=== PATIENT | male | born 1960 | race Caucasian/White ===

== ENCOUNTER 2018-10-02 16:20 | Inpatient (IN) | payer OTHER ==
[2018-10-02 18:10] VITALS: BMI 19.9
--- NOTE | 2018-10-02 20:41 | HP ---
"CIWA Score Nausea/Vomitin-Mild Nausea/No Vomiting Muscle Tremors: 4-Moderate,w/Arms Extend Anxiety: 4-Mod. Anxious/Guarded Agitation: 4-Moderately Restless Paroxysmal Sweats: 3 (Increased facial moisture) Orientation: 0-Oriented Tacttile Disturbances: 0-None Auditory Disturbances: 0-None Visual Disturbances: 0-None Headache: 0-None Present CIWA-Ar Total Score: 16 - Admission Criteria OASAS Guidelines: Admission for Medically Managed Detox: Requires at least one of the followin. CIWA greater than 12 2. Seizures within the past 24 hours 3. Delirium tremens within the past 24 hours 4. Hallucinations within the past 24 hours 5. Acute intervention needed for co occurring medical disorder 6. Acute intervention needed for co occurring psychiatric disorder 7. Severe withdrawal that cannot be handled at a lower level of care (continued vomiting, continued diarrhea, abnormal vital signs) requiring intravenous medication and/or fluids 8. Patient presents the following: CIWA greater than 12 Admission Criteria Met: Admission criteria met Admission ROS [facility] Chief Complaint: Here with alcohol withdrawal. Allergies/Adverse Reactions: Allergies Allergy/AdvReac Type Severity Reaction Status Date / Time No Known Allergies Allergy Verified 10/02/18 19:45 History of Present Illness: States here fro alcohol detox. Alcohol use began at age 12. Marijuana use began at age 10. Crack/cocaine use began at age 28. Nicotine use began at age 38. States SOB when smokes. Declines nicotine patch. Hx blackouts and overdoses r/t alcohol and crack/cocaine. Denies seizures. Longest length of sobriety is 1 week. Sprain in (L) foot after fall down stairs 2 days ago. Seen in [facility]. Denies pain in foot. Prescribed a prosthetic support boot and using a walker since Hx: DM - states controlled by diet Hx: Asthma. Denies recent exacerbation. Mental Health: States hx paranoid -schizophrenia and depression. Being f/u at [place]. States last seen 4 days ago and given Haldol IM. Denies A/V hallucinations. Denies thoughts of harming self or others. States on medications. Search Terms: Jese Enriquez, 1960 Search Date: 10/02/2018 08:31:59 PM The Drug Utilization Report below displays all of the controlled substance prescriptions, if any, that your patient has filled in the last twelve months. The information displayed on this report is compiled from pharmacy submissions to the Department, and accurately reflects the information as submitted by the pharmacies. This report was requested by: Nichelle Jaffe | Reference #: [id number] There are no results for the search terms that you entered. Exam Limitations: No Limitations - Ebola screening Have you traveled outside of the country in the last 21 days: No (N) Have you had contact with anyone from an Ebola affected area: No Have you been sick,other than usual withdrawal symptoms: No Do you have a fever: No - Review of Systems Constitutional: Chills, Diaphoresis, Changes in sleep (Difficulty staying asleep.) EENT: reports: Cataracts, Blurred Vision, Dental Problems (Missing teeth. Chews and swallows okay.) Respiratory: reports: Shortness of Breath (when smokes.), SOB with Exertion Cardiac: reports: Irregular Heart Rate (In past. Not recently.) GI: reports: Blood Streaked Bowels (Occ r/t hemorrhoids. Not recently.), Indigestion, Abdominal cramping, Other : reports: No Symptoms Reported Musculoskeletal: reports: No Symptoms Reported Integumentary: reports: Other (Dry blisters from crack-cocaine pipe) Neuro: reports: Tremors Endocrine: reports: Increased Thirst Hematology: reports: No Symptoms Reported Psychiatric: reports: Judgement Intact, Orientated x3, Agitated, Anxious, Depressed (Denies thoughts of harming self or others.) Patient History - Patient Medical History Hx Asthma: Yes Hx Chronic Obstructive Pulmonary Disease (COPD): No Hx Cardiac Disorders: No Hx Hypertension: No Hx Seizures: No Hx Diabetes: No Hx Gastrointestinal Disorders: No Hx Genitourinary Disorders: No Hx Sexually Transmitted Disorders: No Hx Renal Disease (ESRD): No Hx Human Immunodeficiency Virus (HIV): No Hx Depression: Yes Hx Suicide Attempt: No Hx Schizophrenia: Yes - Patient Surgical History Past Surgical History: No Hx Neurologic Surgery: No Hx Cataract Extraction: No Hx Cardiac Surgery: No Hx Lung Surgery: No Hx Breast Surgery: No Hx Breast Biopsy: No Hx Abdominal Surgery: No Hx Appendectomy: No Hx Cholecystectomy: No Hx Genitourinary Surgery: No Hx Section: No Hx Orthopedic Surgery: No Anesthesia Reaction: No - PPD History Previous Implant?: Yes Documented Results: Negative w/o proof Implanted On Prior R Admission?: No PPD to be Administered?: Yes - Smoking Cessation Smoking history: Current every day smoker Have you smoked in the past 12 months: Yes Aproximately how many cigarettes per day: 40 Hx Chewing Tobacco Use: No Initiated information on smoking cessation: Yes 'Breaking Loose' booklet given: 10/02/18 - Substance & Tx. History Hx Alcohol Use: Yes Hx Substance Use: Yes Substance Use Type: Alcohol, Cocaine, Marijuana Hx Substance Use Treatment: Yes (detox, rehab) - Substances Abused Alcohol Route: Oral Frequency: Daily Amount used: LIQUOR- 1 PINT, BEER- 1 SIX PACK, Age of first use: 12 Date of Last Use: 10/02/18 Cocaine Route: Smoking Frequency: Daily Amount used: 3gm Age of first use: 28 Date of Last Use: 09/30/18 Marijuana/Hashish Route: Smoking Frequency: Daily Amount used: 1 bag Age of first use: 10 Date of Last Use: 10/02/18 Admission Physical Exam S - Vital Signs Vital Signs: Vital Signs - 24 hr 10/02/18 18:08 Temperature 98 F Pulse Rate 75 Respiratory 18 Rate Blood Pressure 146/94 - Physical General Appearance: Yes: Mild Distress, Tremorous, Sweating (Increased facial moisture w/o beads.), Anxious HEENTM: Yes: Hearing grossly Normal, Normocephalic, Normal Voice, PERLA, Pharynx Normal Respiratory: Yes: Lungs Clear, Normal Breath Sounds, No Respiratory Distress Neck: Yes: No masses,lesions,Nodules, Supple Breast: Yes: Breast Exam Deferred Cardiology: Yes: Regular Rhythm, Regular Rate, S1, S2, Murmur (Murmur noted. No edema. No SOB.) Abdominal: Yes: Non Tender, Flat, Soft, Increased Bowel Sounds Genitourinary: Yes: Within Normal Limits Back: Yes: Normal Inspection Musculoskeletal: Yes: full range of Motion, Gait Steady (w/ walker use), Joint swelling (Swelling (L) outer malleolus. Non-tender. FWB. Pedal pulses (+) Toes warm, w/o edema, with cap refill < 3 sec.) Extremities: Yes: Other (Swelling (L) outer malleolus w/o trenderness.) Neurological: Yes: inspector raw quartz II-XII NML intact, Fully Oriented, Motor Strength 5/5, Normal Mood/Affect Integumentary: Yes: Normal Color, Dry, Warm, Other (Dried pickens on fingers w/ dark brown/black hyperkeratotic skin lesions w/o drainage) Lymphatic: Yes: Within Normal Limits - Diagnostic (1) Alcohol dependence with uncomplicated withdrawal Current Visit: Yes Status: Acute (2) Cocaine dependence, uncomplicated Current Visit: Yes Status: Chronic (3) Nicotine dependence, uncomplicated Current Visit: Yes Status: Chronic Qualifiers: Nicotine product type: cigarettes Qualified Code(s): F17.210 - Nicotine dependence, cigarettes, uncomplicated (4) History of borderline diabetes mellitus Current Visit: Yes Status: Chronic (5) Cannabis dependence, uncomplicated Current Visit: Yes Status: Chronic (6) Cardiac murmur, unspecified Current Visit: Yes Status: Acute (7) Sprain of unspecified ligament of left ankle, subsequent encounter Current Visit: Yes Status: Acute Comment: Seen in [facility] ER 09/30/18 and dx w/ ankle sprain. Swelling (L) outer malleolus. No tenderness. FWB. (8) Skin lesion of hand Current Visit: Yes Status: Chronic Comment: r/t crack/cocaine use Cleared for Admission [facility] - Detox or Rehab [facility] Level of Care: Medically Managed Detox Regimen/Protocol: Librium [facility] Breath Alcohol Content Breath Alcohol Content: 0 Urine Drug Screen - Results Drug Screen Negative: No Urine Drug Screen Results: THC-Marijuana, MIKE-Cocaine, BZO-Benzodiazepines"
[2018-10-02] MEDS ORDERED: MENTHOL/PHENOL 1 EACH UD MM PRN (21:15)
[2018-10-02] MEDS ORDERED: MAGNESIUM CITRATE 300 ML BOTTLE PO PRN (21:15)
[2018-10-02] MEDS ORDERED: MAG HYDROX/AL HYDROX/SIMETH 30 ML UNIT-DOSE CUP PO PRN (21:15)
[2018-10-02] MEDS ORDERED: chlordiazePOXIDE HCL 25 MG CAPSULE PO PRN (21:15)
[2018-10-02] MEDS ORDERED: MAGNESIUM HYDROX 2400MG/30ML ORAL SUSPENSION 30 ML CUP PO PRN (21:15)
[2018-10-02] MEDS ORDERED: LOPERAMIDE HCL 2 MG CAPSULE PO PRN (21:15)
[2018-10-02] MEDS ORDERED: P-EPHED 60MG/TRIPROLIDI 2.5MG TABLET PO PRN (21:15)
[2018-10-02] MEDS ORDERED: IBUPROFEN 400 MG TABLET (FP) PO PRN (21:15)
[2018-10-02] MEDS ORDERED: NICOTINE POLACRILEX 4 MG GUM BC PRN (21:15)
[2018-10-02] MEDS ORDERED: guaiFENesin 200 MG/10 ML 10 ML UNIT-DOSE CUPS PO PRN (21:19)
[2018-10-02] MEDS ORDERED: chlordiazePOXIDE HCL 25 MG CAPSULE PO ONE (21:45)
[2018-10-02] MEDS ORDERED: MELATONIN 5 MG TABLETS PO PRN (22:00)
[2018-10-02] MEDS: THIAMINE HCL 100 MG TABLET (FP) PO SCH (22:04)
[2018-10-02] MEDS: chlordiazePOXIDE HCL 25 MG CAPSULE PO SCH (22:05)
[2018-10-03 01:52] LABS: URINE APPEARANCE CLEAR; URINE BILIRUBIN NEGATIVE (<2.0 mg/dL); URINE COLOR YELLOW; URINE GLUCOSE (UA) NEGATIVE (NEGATIVE); URINE KETONE NEGATIVE (NEGATIVE); URINE LEUK ESTERASE NEGATIVE (NEGATIVE); URINE NITRITE NEGATIVE (NEGATIVE); URINE PROTEIN NEGATIVE (NEGATIVE)
[2018-10-03] MEDS: chlordiazePOXIDE HCL 25 MG CAPSULE PO SCH ×4 (05:51→23:10)
[2018-10-03] MEDS: ACETAMINOPHEN 325 MG TABLET (FP) PO PRN ×2 (05:52→23:08)
[2018-10-03 10:08] LABS: HEMATOCRIT 34.2 % (35.4-49); MCH 32.8 pg (25.7-33.7); MCHC 35.1 g/dl (32.0-35.9); MEAN CELL VOLUME 93.3 fl (80-96); MEAN PLT VOLUME 7.7 fl (7.5-11.1); PLATELET COUNT 332 K/MM3 (134-434); RBC 3.66 M/mm3 (4.00-5.60); RDW 13.9 % (11.9-15.9); WHITE BLOOD COUNT 3.2 K/mm3 (4.0-10.0)
[2018-10-03] MEDS: PRENATAL VITAMINS W/ FOLIC ACID TABLET (FP) PO SCH (10:13)
[2018-10-03 10:56] LABS: ALBUMIN 2.8 g/dl (3.4-5.0); ALK PHOS 65 U/L (45-117); ANION GAP 5 MMOL/L (8-16); BILIRUBIN,TOTAL 0.4 mg/dL (0.2-1); BLOOD UREA NITROGEN 15 mg/dL (7-18); CALCIUM 8.5 mg/dL (8.5-10.1); CHLORIDE 109 mmol/L (98-107); CO2 27 mmol/L (21-32); CREATININE 0.7 mg/dL (0.55-1.3); GLUCOSE,RANDOM 90 mg/dL (74-106); POTASSIUM 4.1 mmol/L (3.5-5.1); SGOT/AST 24 U/L (15-37); SGPT/ALT 24 U/L (13-61); SODIUM 141 mmol/L (136-145); TOT PROT 5.8 g/dl (6.4-8.2)
--- NOTE | 2018-10-03 11:59 | EKG ---
Test Reason : Blood Pressure : / mmHG Vent. Rate : 070 BPM Atrial Rate : 070 BPM P-R Int : 128 ms QRS Dur : 096 ms QT Int : 384 ms P-R-T Axes : 071 063 069 degrees QTc Int : 414 ms NORMAL SINUS RHYTHM NORMAL ECG NO PREVIOUS ECGS AVAILABLE Confirmed by BRIDGETT TALAVERA, LEE ([id number]) on 10/03/2018 11:58:55 AM Referred By: Confirmed By:LEE URIAS MD
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
--- NOTE | 2018-10-03 13:45 | CONSULT ---
[facility] Psychiatric Consult - Data Date of interview: 10/03/18 Admission source: [facility] Identifying data: Patient is a 58 year old male, without children, unemployed, homeless, and is supported by [facility]. This is patient's first admission to detox at [facility]. Patient admitted to for alcohol and cocaine dependence. Substance Abuse History: - Smoking Cessation. Smoking history: Current every day smoker. Have you smoked in the past 12 months: Yes. Aproximately how many cigarettes per day: 40. Hx Chewing Tobacco Use: No. Initiated information on smoking cessation: Yes. 'Breaking Loose' booklet given: 10/02/18. - Substance & Tx. History. Hx Alcohol Use: Yes. Hx Substance Use: Yes. Substance Use Type : Alcohol, Cocaine, Marijuana. Hx Substance Use Treatment: Yes (detox, rehab). - Substances Abused. Alcohol. Route: Oral. Frequency: Daily. Amount used: LIQUOR- 1 PINT, BEER- 1 SIX PACK,. Age of first use: 12. Date of Last Use: 10/02/18. Cocaine. Route: Smoking. Frequency: Daily. Amount used: 3gm. Age of first use: 28. Date of Last Use: 09/30/18. Marijuana/Hashish. Route: Smoking. Frequency: Daily. Amount used: 1 bag. Age of first use: 10. Date of Last Use: 10/02/18 Medical History: Asthma, Broken left foot and is ambulating with a walker. Psychiatric History: Patient reports h/o multiple psychiatric hospitalizations all of which occured at [facility]. He was most recently hospitalized at [facility] 2 months ago after experiencing thoughts to hurt himself and paranoid ideations. Self diagnosis of schizophrenia. Mr. Enriquez reports non adherence to his medication regiman. States he has accepted zyprexa, haldol, depakote, and cogentin in the past. As per pharmacy claims he was recently given a prescription of risperdal 2mg BID on 10/02/17 (from [facility]) although stated he has not taken any medications in over 3-4 weeks. Mr. Enriquez reports history of seven suicide attempt by overdose, hanging self[place] Patient currently denies thoughts or urges to hurt himself or others. Mr. Enriquez denies psychotic symptoms. Physical/Sexual Abuse/Trauma History: denies Mental Status Exam - Mental Status Exam Alert and Oriented to: Time, Place, Person Cognitive Function: Good Patient Appearance: Disheveled Mood: Euthymic Affect: Mood Congruent Patient Behavior: Cooperative Speech Pattern: Delayed Voice Loudness: Moderately Soft/Quiet Thought Process: Intact, Goal Oriented Thought Disorder: Not Present Hallucinations: Denies Suicidal Ideation: Denies Homicidal Ideation: Denies Insight/Judgement: Poor Sleep: Fair Appetite: Fair Muscle strength/Tone: Normal Gait/Station: Other (Patient has a broken left foot and is ambulating with a walker.) Psychiatric Findings - Problem List ([place] 1, 2,3) (1) Schizophrenia Current Visit: Yes Status: Suspected Qualifiers: Schizophrenia type: paranoid schizophrenia Qualified Code(s): F20.0 - Paranoid schizophrenia (2) Alcohol dependence with uncomplicated withdrawal Current Visit: Yes Status: Acute (3) Cannabis dependence, uncomplicated Current Visit: Yes Status: Chronic (4) Cocaine dependence, uncomplicated Current Visit: Yes Status: Chronic (5) Nicotine dependence, uncomplicated Current Visit: Yes Status: Chronic Qualifiers: Nicotine product type: cigarettes Qualified Code(s): F17.210 - Nicotine dependence, cigarettes, uncomplicated - Initial Treatment Plan Initial Treatment Plan: Psychoeducation provided. Detoxification in progress. Will order risperdal 1mg BID. Benefits and side effects discussed. Patient reports favorable effects when accepting risperdal. Verbal consent given.
[2018-10-03] MEDS: THIAMINE HCL 100 MG TABLET (FP) PO SCH (22:51)
[2018-10-03] MEDS: risperiDONE 1 MG TABLET (FP) PO SCH (22:51)
[2018-10-04] MEDS: chlordiazePOXIDE HCL 25 MG CAPSULE PO SCH ×3 (05:30→17:17)
[2018-10-04] MEDS: ACETAMINOPHEN 325 MG TABLET (FP) PO PRN ×2 (05:45→17:17)
[2018-10-04] MEDS: risperiDONE 1 MG TABLET (FP) PO SCH ×2 (11:28→22:24)
[2018-10-04] MEDS: PRENATAL VITAMINS W/ FOLIC ACID TABLET (FP) PO SCH (11:28)
--- NOTE | 2018-10-04 14:52 | PN ---
[facility] CIWA - CIWA Score Nausea/Vomitin Muscle Tremors: 3 Anxiety: 0-No Anxiety, at Ease Agitation: 0-Normal Activity Paroxysmal Sweats: 3 Orientation: 2-Disoriented Date<2 days Tacttile Disturbances: 3-Moderate Itch/Numb/Burn Auditory Disturbances: 0-None Visual Disturbances: 0-None Headache: 0-None Present CIWA-Ar Total Score: 14 S Progress Note (SOAP) Subjective: Tremors, Sweating, Stomach Cramping, Nausea. Objective: PATIENT A & O X 2 (UNCERTAIN ABOUT CURRENT DAY / DATE). PATIENT OBSERVED AMBULATING ON UNIT. IN NO ACUTE DISTRESS. 10/04/18 14:49 Vital Signs Temperature 96.3 F L 10/04/18 13:26 Pulse Rate 69 10/04/18 13:26 Respiratory Rate 16 10/04/18 13:26 Blood Pressure 115/74 10/04/18 13:26 O2 Sat by Pulse Oximetry (%) Laboratory Tests 10/02/18 10/03/18 10/03/18 22:26 07:00 07:00 WBC 3.2 L RBC 3.66 L Hgb 12.0 Hct 34.2 L MCV 93.3 MCH 32.8 MCHC 35.1 RDW 13.9 Plt Count 332 MPV 7.7 Sodium 141 Potassium 4.1 Chloride 109 H Carbon Dioxide 27 Anion Gap 5 L BUN 15 Creatinine 0.7 Creat Clearance w eGFR > 60 Random Glucose 90 Calcium 8.5 Total Bilirubin 0.4 AST 24 ALT 24 Alkaline Phosphatase 65 Total Protein 5.8 L Albumin 2.8 L Urine Color Yellow Urine Appearance Clear Urine pH 6.0 Ur Specific [place] 1.019 Urine Protein Negative Urine Glucose (UA) Negative Urine Ketones Negative Urine Blood Negative Urine Nitrite Negative Urine Bilirubin Negative Urine Urobilinogen 2.0 Ur Leukocyte Esterase Negative RPR Titer 10/03/18 07:00 WBC RBC Hgb Hct MCV MCH MCHC RDW Plt Count MPV Sodium Potassium Chloride Carbon Dioxide Anion Gap BUN Creatinine Creat Clearance w eGFR Random Glucose Calcium Total Bilirubin AST ALT Alkaline Phosphatase Total Protein Albumin Urine Color Urine Appearance Urine pH Ur Specific [place] Urine Protein Urine Glucose (UA) Urine Ketones Urine Blood Urine Nitrite Urine Bilirubin Urine Urobilinogen Ur Leukocyte Esterase RPR Titer Nonreactive LABS NOTED. Assessment: 10/04/18 14:50 WITHDRAWAL SYMPTOMS. LEUKOPENIA. ANEMIA. 10/04/18 14:51 Plan: CONTINUE DETOX. INCREASE DAILY PO FLUID INTAKE. PRN ZOFRAN SL FOR NAUSEA.
[2018-10-04] MEDS ORDERED: ONDANSETRON *ODT* 4 MG TABLET SL PRN (15:45)
[2018-10-04] MEDS: THIAMINE HCL 100 MG TABLET (FP) PO SCH (22:24)
[2018-10-04] MEDS: chlordiazePOXIDE 5 MG CAPSULE PO SCH (22:24)
[2018-10-05] MEDS: chlordiazePOXIDE 5 MG CAPSULE PO SCH ×3 (05:18→17:44)
[2018-10-05] MEDS: risperiDONE 1 MG TABLET (FP) PO SCH ×2 (11:07→22:13)
[2018-10-05] MEDS: PRENATAL VITAMINS W/ FOLIC ACID TABLET (FP) PO SCH (11:07)
--- NOTE | 2018-10-05 13:32 | PN ---
[facility] Progress Note (SOAP) Subjective: Tremors, Sweating, Fatigue. Objective: PATIENT A & O X 2 (UNCERTAIN ABOUT CURRENT DAY / DATE). IN NO ACUTE DISTRESS. 10/05/18 13:32 Vital Signs Temperature 98.4 F 10/05/18 09:42 Pulse Rate 75 10/05/18 09:42 Respiratory Rate 16 10/05/18 09:42 Blood Pressure 131/80 10/05/18 09:42 O2 Sat by Pulse Oximetry (%) Laboratory Tests 10/02/18 10/03/18 10/03/18 22:26 06:33 07:00 WBC 3.2 L RBC 3.66 L Hgb 12.0 Hct 34.2 L MCV 93.3 MCH 32.8 MCHC 35.1 RDW 13.9 Plt Count 332 MPV 7.7 Sodium Potassium Chloride Carbon Dioxide Anion Gap BUN Creatinine Creat Clearance w eGFR POC Glucometer 102 Random Glucose Calcium Total Bilirubin AST ALT Alkaline Phosphatase Total Protein Albumin Urine Color Yellow Urine Appearance Clear Urine pH 6.0 Ur Specific [place] 1.019 Urine Protein Negative Urine Glucose (UA) Negative Urine Ketones Negative Urine Blood Negative Urine Nitrite Negative Urine Bilirubin Negative Urine Urobilinogen 2.0 Ur Leukocyte Esterase Negative RPR Titer 10/03/18 10/03/18 10/03/18 07:00 07:00 15:42 WBC RBC Hgb Hct MCV MCH MCHC RDW Plt Count MPV Sodium 141 Potassium 4.1 Chloride 109 H Carbon Dioxide 27 Anion Gap 5 L BUN 15 Creatinine 0.7 Creat Clearance w eGFR > 60 POC Glucometer 114 Random Glucose 90 Calcium 8.5 Total Bilirubin 0.4 AST 24 ALT 24 Alkaline Phosphatase 65 Total Protein 5.8 L Albumin 2.8 L Urine Color Urine Appearance Urine pH Ur Specific [place] Urine Protein Urine Glucose (UA) Urine Ketones Urine Blood Urine Nitrite Urine Bilirubin Urine Urobilinogen Ur Leukocyte Esterase RPR Titer Nonreactive 10/04/18 10/04/18 10/05/18 05:44 16:29 05:17 WBC RBC Hgb Hct MCV MCH MCHC RDW Plt Count MPV Sodium Potassium Chloride Carbon Dioxide Anion Gap BUN Creatinine Creat Clearance w eGFR POC Glucometer 100 110 125 Random Glucose Calcium Total Bilirubin AST ALT Alkaline Phosphatase Total Protein Albumin Urine Color Urine Appearance Urine pH Ur Specific [place] Urine Protein Urine Glucose (UA) Urine Ketones Urine Blood Urine Nitrite Urine Bilirubin Urine Urobilinogen Ur Leukocyte Esterase RPR Titer LABS NOTED. Assessment: 10/05/18 13:33 WITHDRAWAL SYMPTOMS. LEUKOPENIA. ANEMIA. 10/05/18 13:34 Plan: CONTINUE DETOX. INCREASE DAILY PO FLUID INTAKE. ENCOURAGE AMBULATION.
[2018-10-05] MEDS: ACETAMINOPHEN 325 MG TABLET (FP) PO PRN (18:12)
[2018-10-05] MEDS: chlordiazePOXIDE HCL 10 MG CAPSULE PO SCH (22:13)
[2018-10-05] MEDS: THIAMINE HCL 100 MG TABLET (FP) PO SCH (22:13)
[2018-10-06] MEDS: chlordiazePOXIDE HCL 10 MG CAPSULE PO SCH (05:09)
[2018-10-06 10:26] VITALS: BP 156/98; PULSE 87; TEMP 97.6
--- NOTE | 2018-10-06 12:55 | DS ---
[facility] Detox Discharge Summary Admission Date: 10/02/18 Discharge Date: 10/06/18 - History Present History: Alcohol Dependence, Cannabis Dependence, Cocaine Dependence Additional Comments: Patient is A/A/O x 3, in nad. Completed detox successfully and discharged safely. Pertinent Past History: Asthma DM - Physical Exam Results Vital Signs: Vital Signs Temperature 97.6 F 10/06/18 10:00 Pulse Rate 87 10/06/18 10:00 Respiratory Rate 16 10/06/18 10:00 Blood Pressure 156/98 10/06/18 10:00 O2 Sat by Pulse Oximetry (%) Pertinent Admission Physical Exam Findings: Withdrawal symptoms Laboratory Tests 10/02/18 10/03/18 10/03/18 22:26 06:33 07:00 WBC 3.2 L RBC 3.66 L Hgb 12.0 Hct 34.2 L MCV 93.3 MCH 32.8 MCHC 35.1 RDW 13.9 Plt Count 332 MPV 7.7 Sodium Potassium Chloride Carbon Dioxide Anion Gap BUN Creatinine Creat Clearance w eGFR POC Glucometer 102 Random Glucose Calcium Total Bilirubin AST ALT Alkaline Phosphatase Total Protein Albumin Urine Color Yellow Urine Appearance Clear Urine pH 6.0 Ur Specific [place] 1.019 Urine Protein Negative Urine Glucose (UA) Negative Urine Ketones Negative Urine Blood Negative Urine Nitrite Negative Urine Bilirubin Negative Urine Urobilinogen 2.0 Ur Leukocyte Esterase Negative RPR Titer 10/03/18 10/03/18 10/03/18 07:00 07:00 15:42 WBC RBC Hgb Hct MCV MCH MCHC RDW Plt Count MPV Sodium 141 Potassium 4.1 Chloride 109 H Carbon Dioxide 27 Anion Gap 5 L BUN 15 Creatinine 0.7 Creat Clearance w eGFR > 60 POC Glucometer 114 Random Glucose 90 Calcium 8.5 Total Bilirubin 0.4 AST 24 ALT 24 Alkaline Phosphatase 65 Total Protein 5.8 L Albumin 2.8 L Urine Color Urine Appearance Urine pH Ur Specific [place] Urine Protein Urine Glucose (UA) Urine Ketones Urine Blood Urine Nitrite Urine Bilirubin Urine Urobilinogen Ur Leukocyte Esterase RPR Titer Nonreactive 10/04/18 10/04/18 10/05/18 05:44 16:29 05:17 WBC RBC Hgb Hct MCV MCH MCHC RDW Plt Count MPV Sodium Potassium Chloride Carbon Dioxide Anion Gap BUN Creatinine Creat Clearance w eGFR POC Glucometer 100 110 125 Random Glucose Calcium Total Bilirubin AST ALT Alkaline Phosphatase Total Protein Albumin Urine Color Urine Appearance Urine pH Ur Specific [place] Urine Protein Urine Glucose (UA) Urine Ketones Urine Blood Urine Nitrite Urine Bilirubin Urine Urobilinogen Ur Leukocyte Esterase RPR Titer 10/05/18 10/06/18 16:28 06:32 WBC RBC Hgb Hct MCV MCH MCHC RDW Plt Count MPV Sodium Potassium Chloride Carbon Dioxide Anion Gap BUN Creatinine Creat Clearance w eGFR POC Glucometer 118 108 Random Glucose Calcium Total Bilirubin AST ALT Alkaline Phosphatase Total Protein Albumin Urine Color Urine Appearance Urine pH Ur Specific [place] Urine Protein Urine Glucose (UA) Urine Ketones Urine Blood Urine Nitrite Urine Bilirubin Urine Urobilinogen Ur Leukocyte Esterase RPR Titer Labs reviewed - Treatment Hospital Course: Detox Protocol Followed, Detoxed Safely, Responded well, Discharged Condition Good - Medication Discharge Medications: Ambulatory Orders Albuterol Sulfate Inhaler - [Ventolin Hfa Inhaler -] 2 inh PO QID 10/02/18 Benztropine Mesylate [Cogentin -] 1 mg PO BID 10/02/18 Haloperidol [Haldol -] 5 mg PO BID 10/02/18 Olanzapine [Zyprexa -] 10 mg PO DAILY 10/02/18 Risperidone [Risperdal] 1 mg PO DAILY 10/03/18 - Diagnosis (1) Asthma Status: Acute (2) Diabetes mellitus with hyperglycemia Status: Acute (3) Alcohol dependence with uncomplicated withdrawal Status: Acute (4) Cannabis dependence, uncomplicated Status: Chronic (5) Cocaine dependence, uncomplicated Status: Chronic (6) Nicotine dependence, uncomplicated Status: Chronic Qualifiers: Nicotine product type: cigarettes Qualified Code(s): F17.210 - Nicotine dependence, cigarettes, uncomplicated - AMA Did Patient Leave Against Medical Advice: No (F/U with your PCP within 1-2 weeks )
== END 2018-10-06 09:08 | disposition home or self-care (01) | DRG 897 ==
LOC: YASAS 16:20 → Y3N 21:14
PROVIDERS: ADMIT Neuromusculoskeletal Medicine & OMM; ATTEND Neuromusculoskeletal Medicine & OMM
PROC: HZ2ZZZZ Detoxification Services for Substance Abuse Treatment (ICD-10-PCS; principal; 2018-10-02)
DX: F10.230 Alcohol dependence with withdrawal, uncomplicated (principal); F14.20 Cocaine dependence, uncomplicated; F20.0 Paranoid schizophrenia; F12.20 Cannabis dependence, uncomplicated; F17.210 Nicotine dependence, cigarettes, uncomplicated; E11.65 Type 2 diabetes mellitus with hyperglycemia; J45.909 Unspecified asthma, uncomplicated; D72.819 Decreased white blood cell count, unspecified; D64.9 Anemia, unspecified; R01.1 Cardiac murmur, unspecified; R26.2 Difficulty in walking, not elsewhere classified; Z99.89 Dependence on other enabling machines and devices; Z59.0 Homelessness
CPT/HCPCS: 36415; 80053; 81003; 82962; 85027; 86593; 93005; 93010; J2794

== ENCOUNTER 2022-12-11 16:43 | Inpatient (IN) | payer OTHER ==
[2022-12-11 18:05] VITALS: BMI 20.3
[2022-12-11] MEDS ORDERED: NICOTINE 10 MG CARTRIDGE (INHALER) IH PRN (19:28)
[2022-12-11] MEDS ORDERED: MAGNESIUM HYDROX 2400MG/30ML ORAL SUSPENSION 30 ML CUP PO PRN (19:28)
[2022-12-11] MEDS ORDERED: NALOXONE HCL (KLOXXADO) 8 MG SPRAY NS PRN (19:28)
[2022-12-11] MEDS ORDERED: BISMUTH SUBSALICYLATE 524 MG/30 ML PO PRN (19:28)
[2022-12-11] MEDS ORDERED: hydrOXYzine PAMOATE 25 MG CAPSULE (FP) PO PRN (19:28)
[2022-12-11] MEDS ORDERED: LOPERAMIDE HCL 2 MG CAPSULE PO PRN (19:28)
[2022-12-11] MEDS ORDERED: NALOXONE HCL 0.4 MG/ML VIAL IM PRN (19:28)
[2022-12-11] MEDS ORDERED: LORazepam 1 MG TABLET PO PRN (19:28)
[2022-12-11] MEDS ORDERED: DICYCLOMINE HCL 10 MG CAPSULE PO PRN (19:28)
[2022-12-11] MEDS ORDERED: IBUPROFEN 400 MG TABLET (FP) PO PRN (19:28)
[2022-12-11] MEDS ORDERED: BENZOCAINE/MENTHOL (CHLORASEPTIC ) LOZENGE MM PRN (19:28)
[2022-12-11] MEDS ORDERED: ONDANSETRON *ODT* 4 MG TABLET SL PRN (19:28)
[2022-12-11] MEDS ORDERED: guaiFENesin 600 MG TABLET.ER (FP) PO PRN (19:28)
[2022-12-11] MEDS ORDERED: POLYETHYLENE GLYCOL (HEALTHYLAX) 3350 17 GM PACKET PO PRN (19:28)
[2022-12-11] MEDS ORDERED: BENZONATATE 200 MG CAPSULE PO PRN (19:28)
[2022-12-11] MEDS ORDERED: MAG HYDROX/AL HYDROX/SIMETH 30 ML UNIT-DOSE CUP PO PRN (19:28)
[2022-12-11] MEDS: METHOCARBAMOL 500 MG TABLET PO PRN (22:44)
[2022-12-11] MEDS: MELATONIN 5 MG TABLETS PO SCH (22:44)
[2022-12-11] MEDS: THIAMINE HCL 100 MG TABLET (FP) PO SCH (22:45)
[2022-12-11] MEDS: LORazepam 1 MG TABLET PO SCH (23:06)
[2022-12-12] MEDS: LORazepam 1 MG TABLET PO SCH ×4 (05:56→22:54)
[2022-12-12] MEDS: PRENATAL VITAMINS W/ FOLIC ACID TABLET (FP) PO SCH (10:29)
[2022-12-12] MEDS: NICOTINE 14 MG/24 HOURS TOPICAL PATCH TD SCH (10:29)
[2022-12-12] MEDS: BACITRACIN 0.9 GM PACKET TP SCH (10:45)
[2022-12-12 11:09] LABS: HEMATOCRIT 35.1 % (35.4-49); HEMOGLOBIN 12.1 GM/dL (11.7-16.9); MCHC 34.4 g/dl (32.0-35.9); MEAN CELL VOLUME 90.1 fl (80-96); MEAN PLT VOLUME 7.3 fl (7.5-11.1); PLATELET COUNT 322 10^3/uL (134-434); RBC 3.89 M/mm3 (4.00-5.60); RDW 14.5 % (11.9-15.9); WHITE BLOOD COUNT 7.5 K/mm3 (4.0-10.0)
[2022-12-12 11:22] LABS: ALBUMIN 2.9 g/dl (3.4-5.0); BLOOD UREA NITROGEN 27.6 mg/dL (7-18); CALCIUM 8.6 mg/dL (8.5-10.1)
[2022-12-12 11:27] LABS: CREATININE 0.8 mg/dL (0.55-1.3); TOT PROT 6.2 g/dl (6.4-8.2)
[2022-12-12 11:30] LABS: BILIRUBIN,TOTAL 0.5 mg/dL (0.2-1)
[2022-12-12] MEDS: ACETAMINOPHEN 325 MG TABLET (FP) PO PRN (17:42)
[2022-12-12] MEDS: MELATONIN 5 MG TABLETS PO SCH (22:55)
[2022-12-12] MEDS: THIAMINE HCL 100 MG TABLET (FP) PO SCH (22:55)
[2022-12-13] MEDS: LORazepam 1 MG TABLET PO SCH ×4 (06:01→22:00)
[2022-12-13] MEDS: METHOCARBAMOL 500 MG TABLET PO PRN ×3 (06:10→21:57)
[2022-12-13] MEDS: IBUPROFEN 600 MG TABLET (FP) PO PRN ×2 (06:10→15:50)
[2022-12-13] MEDS: PRENATAL VITAMINS W/ FOLIC ACID TABLET (FP) PO SCH (10:47)
[2022-12-13] MEDS: BACITRACIN 0.9 GM PACKET TP SCH (10:47)
[2022-12-13] MEDS: NICOTINE 14 MG/24 HOURS TOPICAL PATCH TD SCH (10:56)
[2022-12-13] MEDS: ACETAMINOPHEN 325 MG TABLET (FP) PO PRN (12:59)
[2022-12-13] MEDS: METHYL SALICYLATE/MENTHOL OINT 30 GM TUBE TP SCH ×2 (14:27→21:56)
[2022-12-13] MEDS: MELATONIN 5 MG TABLETS PO SCH (21:56)
[2022-12-13] MEDS: THIAMINE HCL 100 MG TABLET (FP) PO SCH (22:00)
[2022-12-14] MEDS ORDERED: LORazepam 0.5 MG TABLET PO PRN
[2022-12-14] MEDS: LORazepam 0.5 MG TABLET PO SCH ×2 (05:39→10:15)
[2022-12-14] MEDS: ACETAMINOPHEN 325 MG TABLET (FP) PO PRN (10:14)
[2022-12-14] MEDS: NICOTINE 14 MG/24 HOURS TOPICAL PATCH TD SCH (10:14)
[2022-12-14] MEDS: METHYL SALICYLATE/MENTHOL OINT 30 GM TUBE TP SCH (10:14)
[2022-12-14] MEDS: BACITRACIN 0.9 GM PACKET TP SCH (10:14)
[2022-12-14] MEDS: PRENATAL VITAMINS W/ FOLIC ACID TABLET (FP) PO SCH (10:14)
[2022-12-14] MEDS ORDERED: ALBUTEROL SO4 HFA INHALER IH PRN (10:22)
[2022-12-14 13:13] VITALS: BP 165/79; PULSE 70; RESP 17; TEMP 97.7
[2022-12-15] MEDS ORDERED: LORazepam 0.5 MG TABLET PO ONE (05:00)
== END 2022-12-14 15:55 | disposition left against medical advice (07) | DRG 894 ==
LOC: YASAS 16:43 → Y3N 20:22
PROVIDERS: ADMIT Allergy & Immunology; ATTEND Surgery
PROC: HZ2ZZZZ Detoxification Services for Substance Abuse Treatment (ICD-10-PCS; principal; 2022-12-11)
DX: F10.230 Alcohol dependence with withdrawal, uncomplicated (principal); F14.20 Cocaine dependence, uncomplicated; F20.0 Paranoid schizophrenia; F17.210 Nicotine dependence, cigarettes, uncomplicated; F41.9 Anxiety disorder, unspecified; F32.A Depression, unspecified; D50.9 Iron deficiency anemia, unspecified; E11.9 Type 2 diabetes mellitus without complications; M25.561 Pain in right knee; R94.31 Abnormal electrocardiogram [ECG] [EKG]
CPT/HCPCS: 36415; 80053; 85027; 86780; 93005; 93010; C9803-CS; U0003; U0005